=== PATIENT | female | born 1955 | race Caucasian/White ===

== ENCOUNTER 2016-08-18 17:10 | Emergency (ER) | payer OTHER ==
[~2016-08-18] VITALS: Ht 165.1 cm; Wt 97.5 kg
[~2016-08-18 17:10] MED LIST: ATEN50TA8 PO; BEN50 PO; LISI-420 PO; [UNRECOGNIZED DRUG - CODE] PO
[2016-08-18 17:29] VITALS: BP_SYST 17; BP_SYST 177; BP_DIAS 177; BP_DIAS 91
--- NOTE | 2016-08-18 17:31 | NUR ---
Patient transferred to bed 6 via wheelchair by tech, accompanied by family. RN evaluating patient at bedside.
[2016-08-18] MEDS ORDERED: HYDROcodone/APAP 5/325 MG 1 TAB TAB PO ONE (17:35)
--- NOTE | 2016-08-18 17:40 | NUR ---
61/F BIBA TO ED S/P MECH FALL. C/O PAIN TO RIGHT SHOULDER, RIGHT SIDE OF NECK, AND LOWER BACK. NO LOC. RADIAL PULSES PRESENT BILAT. PAIN 8/10. LUNGS CLEAR BILAT. HR EVEN AND REGULAR. AAOX4. VSS. NO SIGNS OF DISTRESS.
[2016-08-18 20:18] VITALS: BP 160/85
--- NOTE | 2016-08-18 20:18 | NUR ---
Patient discharged with v/s stable. Written and verbal after care instructions given and explained. Patient alert, oriented and verbalized understanding of instructions. Ambulatory with steady gait. All questions addressed prior to discharge. ID band removed. Patient advised to follow up with PMD. Rx of MOTRIN, NORCO,AND ROBAXIN given. Patient educated on indication of medication including possible reaction and side effects. Opportunity to ask questions provided and answered. DAUGHTER AT BEDSIDE AT THIS TIME
== END 2016-08-18 20:18 | disposition home or self-care (01) ==
LOC: MED 17:10
DX: S40.011A Contusion of right shoulder, initial encounter (principal); S50.01XA Contusion of right elbow, initial encounter; I10 Essential (primary) hypertension; Z88.0 Allergy status to penicillin; W01.0XXA Fall on same level from slipping, tripping and stumbling without subsequent striking against object, initial encounter; Y93.89 Activity, other specified; Y92.89 Other specified places as the place of occurrence of the external cause; Y99.8 Other external cause status
CPT/HCPCS: 72110; 73030; 73060; 73080; 99284

== ENCOUNTER 2017-05-03 15:05 | Inpatient (IN) | payer OTHER ==
[~2017-05-03] VITALS: Ht 152.4 cm; Wt 102.1 kg
[~2017-05-03 15:05] MED LIST changes: -BEN50 PO; -LISI-420 PO; -[UNRECOGNIZED DRUG - CODE] PO
[2017-05-03 15:52] VITALS: BP 188/83
--- NOTE | 2017-05-03 17:24 | NUR ---
Patient ambulated to bed 8. RN evaluating patient at bedside.
--- NOTE | 2017-05-03 17:25 | NUR ---
PATIENT PRESENTS TO ED WITH C/O LT LEG PAIN 8/10 X 2 MONTHS ; ULCERATION LT INNER LOWR LEG HX; HTN RX; AMLOPIDINE 5MG QD, ATENOLOL, ASPIR-LOW 81MGDICLOFENAC SOD DR 75MG DENIES N/V/D; SKIN IS PINK/WARM/DRY; AAOX4 WITH EVEN AND STEADY GAIT; LUNGS CLEAR BL; HR EVEN AND REGULAR; PT DENIES ANY FEVER, CP, SOB, OR COUGH AT THIS TIME; PATIENT STATES PAIN OF 8/10 AT THIS TIME; VSS; PATIENT POSITIONED FOR COMFORT; HOB ELEVATED; BEDRAILS UP X2; BED DOWN. ER MD MADE AWARE OF PT STATUS.
--- NOTE | 2017-05-03 17:35 | NUR ---
AAO PT BEING EVALUATED AAO PT AT BEDSIDE
[2017-05-03] MEDS ORDERED: NACL 0.9% 500 ML IV SCH (17:43)
[2017-05-03] MEDS ORDERED: VANCOMYCIN 1,000 MG in DEXTROSE 5% 250 ML IV ONE (17:45)
[2017-05-03] MEDS ORDERED: VANCOMYCIN 1,000 MG VIAL ONE (18:19)
[2017-05-03 19:02] LABS: ALBUMIN 3.6 g/dL (3.4-5.0); ANION GAP 14.6 (8-16); CREATININE 0.7 mg/dL (0.6-1.3); POTASSIUM 3.6 mmol/L (3.5-5.1); TOTAL BILIRUBIN 0.6 mg/dL (0.0-1.0)
[2017-05-03 19:35] LABS: BASOPHILS # (AUTO) 0.1 K/uL (0.00-0.22); BASOPHILS % (AUTO) 1.2 % (0.0-2.0); EOSINOPHILS # (AUTO) 0.4 K/uL (0-0.4); EOSINOPHILS % (AUTO) 3.7 % (0.0-4.0); HEMATOCRIT 40.8 % (36-48); HEMOGLOBIN 13.3 g/dL (12.0-16.0); LYMPHOCYTES # (AUTO) 2.3 K/uL (2.5-16.5); MEAN CORPUSCULAR HEMOGLOBIN 28 pg (27-31); MEAN CORPUSCULAR HGB CONC 33 g/dL (33-37); MEAN CORPUSCULAR VOLUME 85 fL (80-94); MONOCYTES # (AUTO) 0.6 K/uL (0.8-1.0); MONOCYTES % (AUTO) 5.6 % (1.7-9.3); NEUTROPHILS # (AUTO) 6.4 K/uL (1.8-7.7); NEUTROPHILS % (AUTO) 66.5 % (42.2-75.2); PLATELET COUNT (AUTO) 319 K/uL (140-450); RED BLOOD CELL COUNT(AUTO) 4.78 MIL/uL (4.20-5.40); RED CELL DISTRIBUTION WIDTH 12.9 % (11.6-13.7); WHITE BLOOD COUNT (AUTO) 9.8 K/uL (4.8-10.8)
[2017-05-03] MEDS ORDERED: ONDANSETRON 4 MG/2 ML VIAL IVP PRN (19:55)
[2017-05-03] MEDS ORDERED: ACETAMINOPHEN 325 MG TAB PO PRN (19:55)
[2017-05-03] MEDS ORDERED: HYDROcodone/APAP 5/325 MG 1 TAB TAB PO PRN (19:55)
[2017-05-03 20:17] LABS: APPEARANCE,URINE CLEAR (CLEAR); BILIRUBIN,URINE NEGATIVE (NEGATIVE); BLOOD, URINE NEGATIVE (NEGATIVE); COLOR,URINE YELLOW (YELLOW); LEUKOCYTE ESTERASE ,URINE NEGATIVE (NEGATIVE); NITRITE, URINE NEGATIVE (NEGATIVE); UGLUCOSE NEGATIVE (NEGATIVE)
[2017-05-03 20:30] VITALS: BP 122/65
--- NOTE | 2017-05-03 20:30 | NUR ---
Patient's Plan of Care was discussed and reviewed with WINE MAKER: SATURNINO BENTON
--- NOTE | 2017-05-03 20:30 | NUR ---
Patient will be admitted to care of DR PATRICIO. Admited to MS 111B. Will go to room 111B Belongings list completed. Report to SATURNINO CHARLES .
--- NOTE | 2017-05-03 20:30 | NUR ---
Admitted from ER TO MED SURGICAL UNIT , with chief complaint of PAIN, SCAB IN THE LEFT LOWER LEG, 61 y/o ,Female, Cooperative, AWAKE, A/OX4, SAO TOMEAN SPEAKING. IV VANCOMYCIN IVPB FROM ER INFUSING RIGHT AC G20. GRANITE POLISHER NISHI, #[id number] ASSISTED WITH OBTAINING ADMISSION DATA. PATIENT STATED SHE SCRATCHED SCAB IN THE LEFT LOWER LEG. NOTED OPEN WOUND IN THE SITE, PITTING EDEMA +1. UNABLE TO HAVE IT TREATED BECAUSE PATIENT DOES NOT WANT TO GO TO THE HOSPITAL VERBALIZED BY DAUGHTER. WITH DISCOLORATION NOTED IN THE RIGHT LOWER LEG. ABLE TO AMBULATE INDEPENDENTLY. PAIN IN THE LEFT LEG 06/03, REFUSED PAIN MED WHEN OFFERED. oriented to call light, bed, phone,television, bathroom, smoking policy,visiting hours, procedures, ID bracelet on. Belongings list checked. PLAN OF CARE FOR THE SHIFT DISCUSSED WITH HELP OF GRANITE POLISHER. VERBALIZED UNDERSTANDING.
[2017-05-03] MEDS ORDERED: ceFAZolin 1,000 MG VIAL ONE (21:45)
--- NOTE | 2017-05-03 22:30 | NUR ---
ASSISTED TO BR TO VOID, BACK TO BED AFTER VOIDING, SAFETY MAINTAINED.
--- NOTE | 2017-05-03 23:00 | NUR ---
REFUSED LEFT LEG TO BE CLEANED WITH NORMAL SALINE, STATED WETTING LEG WILL MAKE WOUND FRESH. NO NOTED DRAINAGE IN THE LEFT LEG.
[2017-05-04] VITALS: BP 124/60
--- NOTE | 2017-05-04 01:30 | NUR ---
ASSISTED OUT OF BED TO GO TO BR, BACK TO BED AFTER VOIDING.
[2017-05-04] MEDS ORDERED: ceFAZolin 1,000 MG VIAL ONE (04:01)
--- NOTE | 2017-05-04 05:00 | NUR ---
ASSISTED TO BR TO VOID, BACK TO BED AFTER VOIDING, SAFETY MAINTAINED.
--- NOTE | 2017-05-04 06:43 | NUR ---
CONDITION REMAIN STABLE. ALL ANTIBIOTICS FOR THE SHIFT INFUSED BY MELVIN BALLESTEROS. TOLERATED WELL.
--- NOTE | 2017-05-04 07:05 | NUR ---
ENDORSED TO NAEL DEGROOT FOR CONTINUITY OF CARE.
--- NOTE | 2017-05-04 07:10 | NUR ---
Patient's Plan of Care was discussed and reviewed with NAEL: MIKAYLA Teresa LVN
[2017-05-04 07:20] LABS: BASOPHILS # (AUTO) 0.1 K/uL (0.00-0.22); BASOPHILS % (AUTO) 0.8 % (0.0-2.0); EOSINOPHILS # (AUTO) 0.3 K/uL (0-0.4); EOSINOPHILS % (AUTO) 3.3 % (0.0-4.0); HEMATOCRIT 39.5 % (36-48); HEMOGLOBIN 13.1 g/dL (12.0-16.0); LYMPHOCYTES # (AUTO) 1.8 K/uL (2.5-16.5); LYMPHOCYTES % (AUTO) 22.8 % (20.5-51.1); MEAN CORPUSCULAR HEMOGLOBIN 28 pg (27-31); MEAN CORPUSCULAR HGB CONC 33 g/dL (33-37); MEAN CORPUSCULAR VOLUME 85 fL (80-94); MONOCYTES # (AUTO) 0.5 K/uL (0.8-1.0); MONOCYTES % (AUTO) 6.3 % (1.7-9.3); NEUTROPHILS # (AUTO) 5.1 K/uL (1.8-7.7); NEUTROPHILS % (AUTO) 66.8 % (42.2-75.2); PLATELET COUNT (AUTO) 264 K/uL (140-450); RED BLOOD CELL COUNT(AUTO) 4.63 MIL/uL (4.20-5.40); WHITE BLOOD COUNT (AUTO) 7.8 K/uL (4.8-10.8)
[2017-05-04 07:33] LABS: ALBUMIN 3.2 g/dL (3.4-5.0); ANION GAP 12.4 (8-16); CARBON DIOXIDE 29.2 mmol/L (21-32); CREATININE 0.7 mg/dL (0.6-1.3); MAGNESIUM 2.1 mg/dL (1.8-2.4); POTASSIUM 3.6 mmol/L (3.5-5.1); TOTAL BILIRUBIN 0.7 mg/dL (0.0-1.0)
[2017-05-04 08:00] VITALS: BP 140/79
[2017-05-04] MEDS: ATENOLOL 50 MG TAB PO SCH (08:35)
--- NOTE | 2017-05-04 08:35 | NUR ---
DR. BRO CAME, REVIEWED PT. CHART AND SEEN PT..
[2017-05-04] MEDS: ENOXAPARIN 40 MG/0.4 ML SYR SUBQ SCH (08:39)
[2017-05-04] MEDS ORDERED: ENOXAPARIN 30 MG/0.3 ML SYR SUBQ SCH (09:00)
--- NOTE | 2017-05-04 09:49 | NUR ---
PAGED DR. BRO AND SPOKE TO JAG REGARDING MRI ORDER. LEFT CALL BACK NUMBER.
--- NOTE | 2017-05-04 09:53 | NUR ---
DR. ADALI AUGUSTE BACK, INFORMED [facility]. GOT T.O. FROM DR. BRO OF CANCEL MRI AND ORDERED CT LLE WITHOUT CONTRAST, READ BACK AND VERIFIED. INFORMED CHARGE NURSE SERENITY ARREOLA -MELVIN.
--- NOTE | 2017-05-04 10:07 | NUR ---
PATIENT HAS BEEN SCREENED AND CATEGORIZED HIGH NUTRITION RISK. PATIENT WILL BE SEEN WITHIN 1-2 DAYS OF ADMISSION. 05/04/17-05/05/[address]
[2017-05-04 12:00] VITALS: BP 147/88
--- NOTE | 2017-05-04 14:30 | NUR ---
PT NOTES PT order received for wound care, wound to be endorsed to wound care nurse not PT. plastic parts fabricator trimmer able to follow up with MD, order was cx'd, no PT needs per RN.
--- NOTE | 2017-05-04 14:57 | NUR ---
Clinical review faxed to [facility] at [phone]
--- NOTE | 2017-05-04 15:18 | NUR ---
WENT TO BATHROOM WITHOUT ASSISTANCE. TOLERATED WELL. NO C/O PAIN.
--- NOTE | 2017-05-04 19:22 | NUR ---
BEDSIDE REPORT GIVEN TO HERNANDEZ ESPINOSA. IN STABLE CONDITION.
--- NOTE | 2017-05-04 19:25 | NUR ---
RECEIVED REPORT FROM AM NURSE. PT IS AA0X4, ON ROOM AIR. FAMILY AT THE BEDSIDE. NO SIGNS OF ACUTE DISTRESS NOTED, RESPIRATIONS EVEN AND UNLABORED. SKIN COLOR APPROPRIATE TO ETHNICITY. PT DENIES ANY PAIN AT THIS TIME. IV ACCESS PATENT AND ASYMPTOMATIC SALINE LOCK. PLAN OF CARE DISCUSSED, PT VERBALIZED UNDERSTANDING. BED IN LOW POSITION, BILATERAL HALF SIDE RAILS UP, CALL LIGHT WITHIN REACH, WILL CONTINUE TO MONITOR.
--- NOTE | 2017-05-04 23:30 | NUR ---
PT SLEEPING, AROUSABLE TO VOICE. NO SIGNS OF ACUTE DISTRESS NOTED, RESPIRATIONS EVEN AND UNLABORED. BED IN LOW POSITION, BILATERAL HALF SIDE RAILS UP, CALL LIGHT WITHIN REACH, WILL CONTINUE TO MONITOR.
[2017-05-05] VITALS: BP 135/77
--- NOTE | 2017-05-05 07:13 | NUR ---
ENDORSED PT FOR CONTINUITY OF CARE. PT IS IN STABLE CONDITION.
--- NOTE | 2017-05-05 07:15 | NUR ---
ASSUMED CONTINUITY OF CARE. NO SIGNS AND SYMPTOMS OF ACUTE DISTRESS NOTICED. INITIAL ASSESSMENT DONE. KEEP COMFORTABLE ON BED. EXPLAINED DIAGNOSIS, PLAN OF CARE, PAIN MANAGEMENT TEACHING, USE OF CALL LIGHT/BED/TV/BATHROOM. VERBALIZED UNDERSTANDING. FALL PRECAUTION APPLIED. CALL LIGHT WITHIN REACH.
--- NOTE | 2017-05-05 07:15 | NUR ---
Patient's Plan of Care was discussed and reviewed with HELPER MAINTENANCE CLEANING: Lashon PICKERING
[2017-05-05 07:32] LABS: BASOPHILS # (AUTO) 0.1 K/uL (0.00-0.22); BASOPHILS % (AUTO) 1.7 % (0.0-2.0); EOSINOPHILS # (AUTO) 0.3 K/uL (0-0.4); EOSINOPHILS % (AUTO) 3.6 % (0.0-4.0); HEMATOCRIT 37.7 % (36-48); HEMOGLOBIN 12.5 g/dL (12.0-16.0); MEAN CORPUSCULAR HEMOGLOBIN 28 pg (27-31); MEAN CORPUSCULAR HGB CONC 33 g/dL (33-37); MEAN CORPUSCULAR VOLUME 85 fL (80-94); MONOCYTES # (AUTO) 0.5 K/uL (0.8-1.0); MONOCYTES % (AUTO) 6.1 % (1.7-9.3); NEUTROPHILS # (AUTO) 4.8 K/uL (1.8-7.7); NEUTROPHILS % (AUTO) 62.6 % (42.2-75.2); PLATELET COUNT (AUTO) 241 K/uL (140-450); RED BLOOD CELL COUNT(AUTO) 4.44 MIL/uL (4.20-5.40); RED CELL DISTRIBUTION WIDTH 13.3 % (11.6-13.7); WHITE BLOOD COUNT (AUTO) 7.7 K/uL (4.8-10.8)
[2017-05-05 08:00] VITALS: BP 137/74
[2017-05-05] MEDS: ATENOLOL 50 MG TAB PO SCH (08:32)
[2017-05-05] MEDS: ENOXAPARIN 40 MG/0.4 ML SYR SUBQ SCH (08:34)
[2017-05-05 08:43] LABS: ANION GAP 12.7 (8-16); CREATININE 0.7 mg/dL (0.6-1.3); POTASSIUM 3.7 mmol/L (3.5-5.1); TOTAL BILIRUBIN 0.7 mg/dL (0.0-1.0)
--- NOTE | 2017-05-05 09:00 | NUR ---
WOUND CARE EVALUATION NOTES: REASON FOR EVALUATION: LLE WOUND COMPLETE SKIN ASSESSMENT DONE ON THIS 61 Y/O FEMALE PATIENT FROM HOME TO [facility], WITH INITIAL DIAGNOSIS OF PAIN ON LLE. PAST MEDICAL HISTORY INCLUDE HYPERTENSION AND VARICOSE VEIN. ALL ABOVE INFORMATION WAS OBTAINED FROM THE ADMISSION H&P AND PT. LABS ARE WBC 7.7, H/H 12.5/37.2 , GLUCOSE 108, , ALBUMIN 3.0. CURRENT MEDS INCLUDE CEFAZOLINE, ATENOLOL AND ACETAMINOPHEN. PATIENT IS AWAKE, ALERT, AND ABLE TO FOLLOW DIRECTIONS. SKIN WARM TO TOUCH WNL, THICKENED TOENAILS, EDEMA TO LLE, NO HAIR GROWTH AND BILATERAL PEDAL PULSES PRESENT. PLAN OF CARE DISCUSSED WITH PT AND PRIMARY NURSE. PT ABLE TO VERBALIZE UNDERSTANDING. INTEGUMENTARY: LEFT MEDIAL ANKLE CELLULITIS WITH 4X4 CM , PARTIAL THICKNESS LOSS OF DERMIS, WOUND BED RED, MOIST, NO ODOR, RANDY WOUND REDNESS, WOUND EDGE FLAT RECOMMENDATIONS: -MAY HAVE [facility] TO FOLLOW WOUND TREATMENT X 2 WEEKS UPON DISCHARGED -CLEANSE LEFT MEDIAL ANKLE WOUND WITH NS, PAT DRY, APPLY XEROFORM DRESSING,COVER WITH DRY DRESSING AND WRAP WITH KERLIX , CHANGE QOD AND PRN IF SOILING -OFFLOAD BILATERAL HEELS BY PLACING PILLOWS UNDER CALVES AT ALL TIMES, UNLESS OTHERWISE CONTRAINDICATED -DOCTOR OF PHARMACY CONSULT AND DEBRIDEMENT OF RIGHT HEEL -PRESSURE REDISTRIBUTION SURFACE THERAPY -KEEP SKIN CLEAN AND DRY AT ALL TIMES. RECOMMENDATIONS DISCUSSED WITH PRIMARY RN AND PT. NO NEED TO FOLLOW UP, PLEASE CONTACT WOUND CARE NURSE FOR ANY CONCERNS AND CHANGES IN WOUND CONDITION Addendum: 05/05/17 at 1332 by Felice Velarde RN (Grace) -ERROR ENTRY ON "DOCTOR OF PHARMACY CONSULT AND DEBRIDEMENT OF RIGHT HEEL", NO NEED FOR DOCTOR OF PHARMACY CONSULT
--- NOTE | 2017-05-05 09:25 | NUR ---
WOUND CARE NURSE ERIC CAME FOR PT. WOUND EVAL. WOUND CARE DONE WITH ASSISTANCE FROM WOUND CARE NURSE ERIC. PT. TOLERATED WELL. NO C/O PAIN.
[2017-05-05 12:00] VITALS: BP 130/71
[2017-05-05] MEDS ORDERED: NACL 0.9% IRR 250 ML BOTTLE IR PRN (13:10)
--- NOTE | 2017-05-05 14:32 | NUR ---
SPOKE TO PATIENT THIS AFTERNOON REGARDING DISCHARGE PLAN FOR HOME HEALTH FOR WOUND CARE . PER PATIENT SHE NO PREFERENCE ON HOME HEALTH AGENCY. FAXED REFERRAL TO [facility] AND [facility].
--- NOTE | 2017-05-05 14:55 | NUR ---
05/05/17 RD INITIAL ASSESSMENT COMPLETED PLEASE REFER TO NUTRITION ASSESSMENT UNDER CARE ACTIVITY FOR ESTIMATED NUTRITIONAL NEEDS. 1. CONTINUE 2GM SODIUM DIET -DIET APPROPRIATE FOR MEDICAL HISTORY -PT MEETING 100% OF ESTIMATED KCAL AND PROTEIN NEEDS 2. RD PROVIDED PT WITH HEALTHY EATING EDUCATION 3. RD TO FOLLOW-UP 5-7 DAYS, LOW RISK NATHANAEL ALEJANDRA, RD
--- NOTE | 2017-05-05 16:55 | NUR ---
CHARGE NURSE SERENITY ARREOLA -MELVIN CALLED SEWING MACHINE MECHANIC -ISAÍAS AND ASKED ABOUT PT. HOME HEALTH FOR WOUND CARE, PER ISAÍAS HOME HEALTH IS NOT ARRANGED YET. CHARGE NURSE SPOKE TO DR. BRO THAT HOME HEALTH IS NOT ARRANGED YET AND PER DR. BRO PT. CAN BE D/C HOME TOMORROW 05/06/17 IF HOME HEALTH IS ARRANGE. EXPLAINED TO PT. AND PT. SON IN-LAW -SHELLIE THAT PER DR. BRO PT. WILL BE D/C HOME TOMORROW 05/06/17 IF HOME HEALTH IS ARRANGE BY SEWING MACHINE MECHANIC. PT. AND PT. SON IN-LA[place] -SHELLIE VERBALIZED UNDERSTANDING.
--- NOTE | 2017-05-05 19:12 | NUR ---
BEDSIDE REPORT GIVEN TO BERNARD DIEGO -MELVIN. IVF INFUSING AT [facility]. IN STABLE CONDITION. ALSO ENDORSED ABOUT PT. HOME HEALTH TO BE ARRANGE BY PROJECT CONTROL ANALYST BEFORE D/C.
--- NOTE | 2017-05-05 19:13 | NUR ---
RECEIVED REPORT FROM DAY NURSE,MIKAYLA NAYAK, PT IS IN STABLE CONDITION. NO S/S OF DISTRESS NOTED. PT IS AAOX4, ON ROOM AIR. IV TO R AC 20G, PATENT AND INTACT. BANDAGE TO LEFT LOWER LEG PATENT AND INTACT. SKIN IS WARM AND DRY TO TOUCH, COLOR WNL. INITIAL ASSESSMENT COMPLETED, PLAN OF CARE DISCUSSED WITH PT, VERBALIZED UNDERSTANDING. ALL SAFETY PRECAUTIONS MET, CALL LIGHT WITHIN REACH, WILL CONTINUE TO MONITOR.
[2017-05-05] MEDS: ceFAZolin 1,000 MG VIAL IV SCH (20:15)
--- NOTE | 2017-05-05 21:00 | NUR ---
EVAPORATOR OPERATOR [id number] USED FOR MEDICATION ADMINISTRATION. EDUCATION GIVEN ON MEDICATION AND SIDE EFFECTS. PT VERBALIZED UNDERSTANDING
[2017-05-06] VITALS: BP 139/69
[2017-05-06] MEDS: ceFAZolin 1,000 MG VIAL IV SCH (05:08)
--- NOTE | 2017-05-06 07:29 | NUR ---
GAVE REPORT TO DAY NURSE AT THE BEDSIDE FOR CONTINUITY OF CARE, PT IN STABLE CONDITION NO S/S OF DISTRESS NOTED
[2017-05-06 07:54] LABS: BASOPHILS # (AUTO) 0.1 K/uL (0.00-0.22); BASOPHILS % (AUTO) 1.8 % (0.0-2.0); EOSINOPHILS # (AUTO) 0.3 K/uL (0-0.4); EOSINOPHILS % (AUTO) 3.5 % (0.0-4.0); HEMATOCRIT 41.5 % (36-48); HEMOGLOBIN 13.8 g/dL (12.0-16.0); LYMPHOCYTES # (AUTO) 1.9 K/uL (2.5-16.5); LYMPHOCYTES % (AUTO) 25.2 % (20.5-51.1); MEAN CORPUSCULAR HEMOGLOBIN 28 pg (27-31); MEAN CORPUSCULAR HGB CONC 33 g/dL (33-37); MEAN CORPUSCULAR VOLUME 85 fL (80-94); MONOCYTES # (AUTO) 0.4 K/uL (0.8-1.0); MONOCYTES % (AUTO) 5.9 % (1.7-9.3); NEUTROPHILS # (AUTO) 4.9 K/uL (1.8-7.7); NEUTROPHILS % (AUTO) 63.6 % (42.2-75.2); PLATELET COUNT (AUTO) 290 K/uL (140-450); RED CELL DISTRIBUTION WIDTH 12.7 % (11.6-13.7); WHITE BLOOD COUNT (AUTO) 7.6 K/uL (4.8-10.8)
--- NOTE | 2017-05-06 09:31 | NUR ---
SPOKE WITH [facility]. THEY CANNOT TAKE THE PATIENT, THEY DO NOT HAVE A CONTRACT WITH [facility]. I SPOKE WITH JOLLY AT [facility] AND FAXED THE ORDER , FACE SHEET, AND WOUND CARE EVAL NOTES. SHE SAID THEY WILL TAKE THE PATIENT AND WILL NOTIFY [facility].
--- NOTE | 2017-05-06 09:41 | NUR ---
FAXED CONCURRENT REVIEW TO [facility] [phone] PHONE OCTOBER [phone]
[2017-05-06] MEDS: ATENOLOL 50 MG TAB PO SCH (10:29)
[2017-05-06] MEDS: ENOXAPARIN 40 MG/0.4 ML SYR SUBQ SCH (10:32)
[2017-05-06] MEDS ORDERED: NACL 0.9% IRR 250 ML BOTTLE IR SCH (13:00)
--- NOTE | 2017-05-06 13:00 | NUR ---
DISCHARGE INSTRUCTIONS GIVEN, IV REMOVED, CATHETER TIP INTACT, ID WRIST BAND REMOVED. PATIENT WAS PROVIDED WITH WOUND CARE SUPPLIES.
== END 2017-05-06 13:45 | disposition home health service (06) | DRG 383 ==
LOC: MED 15:05 → MTU 19:59
PROVIDERS: ADMIT Hospitalist; ATTEND Hospitalist
DX: L03.116 Cellulitis of left lower limb (principal); L97.928 Non-pressure chronic ulcer of unspecified part of left lower leg with other specified severity; I10 Essential (primary) hypertension; R21 Rash and other nonspecific skin eruption; I83.90 Asymptomatic varicose veins of unspecified lower extremity; I87.8 Other specified disorders of veins; I89.0 Lymphedema, not elsewhere classified; B95.8 Unspecified staphylococcus as the cause of diseases classified elsewhere; B96.20 Unspecified Escherichia coli [E. coli] as the cause of diseases classified elsewhere; Z88.0 Allergy status to penicillin; Z79.899 Other long term (current) drug therapy
CPT/HCPCS: 36415; 73600; 73700; 80053; 81003; 83605; 83735; 83874; 85025; 85610; 85730; 87040; 87070; 87075; 87081; 87186; 87205; 93971; 96365; 99285; J0690; J1650; J3370; J7030; J7060; Q0092